=== PATIENT | female | born 1995 | race Caucasian/White ===

== ENCOUNTER 2020-05-20 18:28 | Emergency (ER) | payer OTHER, SELFPAY ==
[2020-05-20] VITALS (17 sets, daily range): BP systolic 118–238; BP diastolic 58–191; PULSE 137–199; RESP 24–43; TEMP 38.4–39.6; O2SAT 96–100; BMI 40.2
--- NOTE | 2020-05-20 18:40 | ED_ITS ---
HPI - General Adult General Chief complaint: Fever Stated complaint: shaking uncontrolably Time Seen by Provider: 05/20/20 18:39 History of Present Illness HPI narrative: 24-year-old 4 days vaginal delivery at the [facility] (transfer to [facility] with concerns of ventriculomegaly in the fetus) presents with 45 minutes of acute onset rigors, tachycardia, global weakness mild diaphoresis. She is on her way home from the [facility] after being discharged this afternoon. She reports a second-degree laceration. She has had some moderate difficulty with urination and had a catheter replaced once for acute urinary retention. Had been voiding prior to discharge. She states that she has been doing well up until 45 minutes ago. She does believe she has a urinary tract infection and has noticed more dysuria and frequency recently she is trying to breastfeed but today noticed that she had little milk. She has done no breast-feeding or pumping all day today (currently 7:00 p.m.) and breasts are still quite soft. She complains no chest pain, dyspnea, fevers,, abdominal pain. She does note that with her vaginal delivery she had a pudendal nerve issue and some weakness in her left leg that seems to be improving. She complains of a mild frontal headache no neck pain, back pain. She did have an epidural with her recent vaginal delivery. Related Data Allergies Allergy/AdvReac Type Severity Reaction Status Date / Time nuts AdvReac Uncoded 05/20/20 19:22 Review of Systems Review of Systems Narrative: Pertinent positive and negative findings as per HPI Remainder of review of systems is otherwise unremarkable for ENT: No sore throat, neck pain, ear pain CV: Chest pain, palpitations, dyspnea on exertion Respiratory: Cough, wheeze, dyspnea GI: Nausea, vomiting, diarrhea, change in bowel habits, black or bloody stools MS: Muscle weakness, numbness, joint swelling or warmth Skin: Rashes, nonhealing lesions Neuro: Syncope, dizziness, tingling Patient History Medical History (Updated 05/20/20 @ 21:51 by Staci Neal MD) Vaginal delivery (Acute) Exam Narrative Exam Narrative: General: Febrile, rigors, mild diaphoresis, tachypnea without reported dyspnea, able to speak in full sentences HEENT: Moist mucous membranes, normal sclera with reactive pupils, Neck: No JVD, supple Respiratory: Lungs are clear to auscultation, no wheezing no rales no rhonchi. Full and symmetrical air movement Breasts: Minimal fullness and minimal milk production, no erythema, no tenderness Cardiac: Extremely tachycardic but Regular rate and rhythm no murmurs no bruits Abdomen: with umbilicus at fundus. Soft nontender good bowel tones, no flank pain Skin: Flushed, no rashes. Small bruising midline over the lumbar spine from epidural placement Neurologic: Grossly neurologically intact with no obvious asymmetries or abnormalities Extremities: No trauma, well perfused, no calf tenderness and no significant lower extremity edema Perineal exam: Healing second-degree repair with no obvious abscess, induration or infection. Psych: Cooperative, appropriate insight and affect Bedside ultrasound shows significantly distended bladder and minimal endometrial debris Initial Vital Signs Initial Vital Signs: Vital Signs Temperature 103.3 F H 05/20/20 18:39 Pulse Rate 175 H 05/20/20 18:39 Respiratory Rate 24 05/20/20 18:39 Blood Pressure 154/106 H 05/20/20 18:39 Pulse Oximetry 97 05/20/20 18:39 Course Orders Ordered: ED Orders 05/20/20 18:43 XR chest 1V Stat EKG-12 Lead Stat RT Consult Eval and Treat Now 05/20/20 18:44 Complete Blood Count AUTO DIFF Stat Comprehensive Metabolic Panel Stat D Dimer Stat Lactate (Lactic Acid) Stat Lipase Stat Partial Thromboplastin Time Stat Procalcitonin Stat Prothrombin Time INR Stat 05/20/20 18:55 Blood Culture Stat 05/20/20 19:15 Urinalysis and Microscopic Stat Urine Culture Stat 05/20/20 19:16 CT angio chest PE protocol Stat Discontinued Medications Acetaminophen (Tylenol) 975 mg PO NOW ONE Stop: 05/20/20 19:14 Last Admin: 05/20/20 19:31 Dose: 975 mg Documented by: JANNY Gentamicin Sulfate (Garamycin Per Pharmacy) [facility] Stop: 05/20/20 18:41 Last Admin: 05/20/20 20:07 Dose: Not Given Documented by: JANNY Hydromorphone HCl (Dilaudid) 1 mg IV NOW ONE Stop: 05/20/20 20:26 Last Admin: 05/20/20 20:30 Dose: 1 mg Documented by: JANNY Sodium Chloride (Normal Saline 0.9%) 1,000 mls @ 1,000 mls/hr IV BOLUS ONE Stop: 05/20/20 19:42 Last Infusion: 05/20/20 21:32 Dose: 0 mls/hr Documented by: Admin: 05/20/20 19:23 Dose: 1,000 mls/hr Documented by: JANNY Cefepime HCl 2 gm/ Sodium (Chloride) 100 mls @ 200 mls/hr IV NOW ONE Stop: 05/20/20 18:41 Last Infusion: 05/20/20 20:43 Dose: 0 mls/hr Documented by: Admin: 05/20/20 19:52 Dose: 200 mls/hr Documented by: JANNY Gentamicin Sulfate 1,500 mg/ (Sodium Chloride) 137.5 mls @ 137.5 mls/hr IV NOW ONE Stop: 05/20/20 18:45 Last Admin: 05/20/20 19:17 Dose: Not Given Documented by: JANNY Sodium Chloride (Normal Saline 0.9%) 1,000 mls @ 2,000 mls/hr IV BOLUS ONE Stop: 05/20/20 19:20 Last Infusion: 05/20/20 20:44 Dose: 0 mls/hr Documented by: Admin: 05/20/20 19:24 Dose: 2,000 mls/hr Documented by: JANNY Cefepime HCl 2 gm/ Sodium (Chloride) 100 mls @ 200 mls/hr IV NOW ONE Stop: 05/20/20 19:12 Last Admin: 05/20/20 19:18 Dose: Not Given Documented by: JANNY Gentamicin Sulfate 500 mg/ (Sodium Chloride) 112.5 mls @ 137.5 mls/hr IV NOW ONE Stop: 05/20/20 19:33 Last Admin: 05/20/20 20:30 Dose: 137.5 mls/hr Documented by: JANNY Sodium Chloride (Normal Saline 0.9%) 1,000 mls @ 1,000 mls/hr IV BOLUS ONE Stop: 05/20/20 20:35 Last Infusion: 05/20/20 20:44 Dose: 0 mls/hr Documented by: Admin: 05/20/20 19:38 Dose: 1,000 mls/hr Documented by: JANNY Ibuprofen (Advil) 600 mg PO NOW ONE Stop: 05/20/20 21:49 Lidocaine HCl (Urojet) 5 ml TOP NOW ONE Stop: 05/20/20 20:36 Last Admin: 05/20/20 20:38 Dose: 5 ml Documented by: MINA Vital Signs Vital signs: Vital Signs - 8 hr 05/20/20 18:39 05/20/20 19:07 05/20/20 19:30 Temperature 103.3 F H Pulse Rate 175 H 153 H 141 H Respiratory Rate 24 29 H 26 H Blood Pressure 154/106 H Pulse Oximetry 97 99 05/20/20 19:31 05/20/20 19:33 05/20/20 20:00 Temperature 103.1 F H Pulse Rate 151 H 162 H Respiratory Rate 41 H 37 H Blood Pressure 135/63 Pulse Oximetry 98 99 05/20/20 20:09 05/20/20 20:15 05/20/20 20:23 Temperature 101.2 F H Pulse Rate 143 H 137 H 181 H Respiratory Rate 28 H 28 H 43 H Blood Pressure 125/58 L 137/71 146/78 H Pulse Oximetry 98 99 98 05/20/20 20:30 05/20/20 20:31 05/20/20 20:43 Temperature 101.3 F H Pulse Rate 199 H 194 H Respiratory Rate 43 H 39 H Blood Pressure 238/191 H Pulse Oximetry 100 100 05/20/20 20:54 05/20/20 21:00 05/20/20 21:30 Temperature Pulse Rate 152 H 150 H 153 H Respiratory Rate 29 H 27 H 26 H Blood Pressure 118/85 Pulse Oximetry 96 99 05/20/20 21:49 Temperature 102.5 F H Pulse Rate Respiratory Rate Blood Pressure Pulse Oximetry Medical Decision Making Medical Records Medical records reviewed: Yes I reviewed the patient's medical records. Lab Data Lab results reviewed: Yes I reviewed the patient's lab results. Result diagrams: 05/20/20 18:44 05/20/20 18:44 Labs: Lab Results 05/20/20 05/20/20 05/20/20 Range/Units 18:44 18:44 18:44 WBC 7.9 (4.5-11.0) X10^3/uL RBC 3.64 L (4.0-5.2) X10^6/uL Hgb 10.8 L (12.0-16.0) g/dL Hct 32.1 L (36-46) % MCV 88.2 (80-100) fL MCH 29.7 (26-34) PG MCHC 33.7 (30-36) % RDW 15.4 H (11.6-14.8) % Plt Count 205 (150-400) X10^3/uL Neut % (Auto) 86.4 H (50-75) % Lymph % (Auto) 10.8 L (25-40) % [place] % (Auto) 1.5 L (3-14) % Eos % (Auto) 1.0 L (2-4) % Baso % (Auto) 0.3 (0-2) % Neut # (Auto) 6800 (0812-2178) /uL Lymph # (Auto) 900 L (2536-1175) /uL [place] # (Auto) 100 (0-900) /uL Eos # (Auto) 100 (0-450) /uL Baso # (Auto) 0 (0-100) /uL PT 12.3 (10.1-12.7) SECONDS INR 1.1 (0.9-1.3) APTT 31 (26.4-36.2) SECONDS D-Dimer 1578 H (<230) ng/mL Sodium (137-145) mmol/L Potassium (3.4-5.1) mmol/L Chloride (98-107) mmol/L Carbon Dioxide (22-32) mmol/L BUN (7-17) mg/dL Creatinine (0.52-1.04) mg/dL Estimated GFR (>60) mL/min BUN/Creatinine Ratio (6-22) Glucose (70-100) mg/dL Lactate (0.7-2.1) mmol/L Calcium (8.4-10.2) mg/dL Total Bilirubin (0.2-1.3) mg/dL AST (14-36) IU/L ALT (<35) IU/L Alkaline Phosphatase (38-126) U/L Total Protein (6.3-8.2) g/dL Albumin (3.5-5.0) g/dL Globulin (1.7-4.1) g/dL Albumin/Globulin Ratio (1.0-2.8) Lipase (23-300) U/L Procalcitonin 1.36 H (<0.5) ng/mL Urine Color Urine Appearance Urine pH (4.5-8.0) Ur Specific [place] (1.000-1.035) Urine Protein (Negative) Urine Glucose (UA) (Negative) g/dL Urine Ketones (NEGATIVE) Urine Occult Blood (Negative) Urine Nitrate (Negative) Urine Bilirubin (NEGATIVE) Urine Urobilinogen (0.2) E.U./dL Ur Leukocyte Esterase (NEGATIVE) Urine RBC (0-5/HPF) Urine WBC (0-5/HPF) Urine Bacteria (None) Ur Culture Indicated? 05/20/20 05/20/20 05/20/20 Range/Units 18:44 18:44 18:44 WBC (4.5-11.0) X10^3/uL RBC (4.0-5.2) X10^6/uL Hgb (12.0-16.0) g/dL Hct (36-46) % MCV (80-100) fL MCH (26-34) PG MCHC (30-36) % RDW (11.6-14.8) % Plt Count (150-400) X10^3/uL Neut % (Auto) (50-75) % Lymph % (Auto) (25-40) % [place] % (Auto) (3-14) % Eos % (Auto) (2-4) % Baso % (Auto) (0-2) % Neut # (Auto) (0877-6849) /uL Lymph # (Auto) (0682-4226) /uL [place] # (Auto) (0-900) /uL Eos # (Auto) (0-450) /uL Baso # (Auto) (0-100) /uL PT (10.1-12.7) SECONDS INR (0.9-1.3) APTT (26.4-36.2) SECONDS D-Dimer Cancelled (<230) ng/mL Sodium 136 L (137-145) mmol/L Potassium 4.6 (3.4-5.1) mmol/L Chloride 103 (98-107) mmol/L Carbon Dioxide 23 (22-32) mmol/L BUN 8 (7-17) mg/dL Creatinine 0.86 (0.52-1.04) mg/dL Estimated GFR > 60.0 (>60) mL/min BUN/Creatinine Ratio 9.3 (6-22) Glucose 81 (70-100) mg/dL Lactate 3.3 H (0.7-2.1) mmol/L Calcium 8.5 (8.4-10.2) mg/dL Total Bilirubin 0.3 (0.2-1.3) mg/dL AST 59 H (14-36) IU/L ALT 54 H (<35) IU/L Alkaline Phosphatase 145 H (38-126) U/L Total Protein 7.1 (6.3-8.2) g/dL Albumin 3.7 (3.5-5.0) g/dL Globulin 3.4 (1.7-4.1) g/dL Albumin/Globulin Ratio 1.1 (1.0-2.8) Lipase 37 (23-300) U/L Procalcitonin (<0.5) ng/mL Urine Color Urine Appearance Urine pH (4.5-8.0) Ur Specific [place] (1.000-1.035) Urine Protein (Negative) Urine Glucose (UA) (Negative) g/dL Urine Ketones (NEGATIVE) Urine Occult Blood (Negative) Urine Nitrate (Negative) Urine Bilirubin (NEGATIVE) Urine Urobilinogen (0.2) E.U./dL Ur Leukocyte Esterase (NEGATIVE) Urine RBC (0-5/HPF) Urine WBC (0-5/HPF) Urine Bacteria (None) Ur Culture Indicated? 05/20/20 05/20/20 Range/Units 19:15 21:05 WBC (4.5-11.0) X10^3/uL RBC (4.0-5.2) X10^6/uL Hgb (12.0-16.0) g/dL Hct (36-46) % MCV (80-100) fL MCH (26-34) PG MCHC (30-36) % RDW (11.6-14.8) % Plt Count (150-400) X10^3/uL Neut % (Auto) (50-75) % Lymph % (Auto) (25-40) % [place] % (Auto) (3-14) % Eos % (Auto) (2-4) % Baso % (Auto) (0-2) % Neut # (Auto) (1815-5199) /uL Lymph # (Auto) (3721-2597) /uL [place] # (Auto) (0-900) /uL Eos # (Auto) (0-450) /uL Baso # (Auto) (0-100) /uL PT (10.1-12.7) SECONDS INR (0.9-1.3) APTT (26.4-36.2) SECONDS D-Dimer (<230) ng/mL Sodium (137-145) mmol/L Potassium (3.4-5.1) mmol/L Chloride (98-107) mmol/L Carbon Dioxide (22-32) mmol/L BUN (7-17) mg/dL Creatinine (0.52-1.04) mg/dL Estimated GFR (>60) mL/min BUN/Creatinine Ratio (6-22) Glucose (70-100) mg/dL Lactate 1.5 (0.7-2.1) mmol/L Calcium (8.4-10.2) mg/dL Total Bilirubin (0.2-1.3) mg/dL AST (14-36) IU/L ALT (<35) IU/L Alkaline Phosphatase (38-126) U/L Total Protein (6.3-8.2) g/dL Albumin (3.5-5.0) g/dL Globulin (1.7-4.1) g/dL Albumin/Globulin Ratio (1.0-2.8) Lipase (23-300) U/L Procalcitonin (<0.5) ng/mL Urine Color Yellow Urine Appearance Cloudy Urine pH 6.5 (4.5-8.0) Ur Specific [place] 1.010 (1.000-1.035) Urine Protein 2+ H (Negative) Urine Glucose (UA) Negative (Negative) g/dL Urine Ketones Negative (NEGATIVE) Urine Occult Blood 3+ H (Negative) Urine Nitrate Negative (Negative) Urine Bilirubin Negative (NEGATIVE) Urine Urobilinogen 0.2 (0.2) E.U./dL Ur Leukocyte Esterase 2+ H (NEGATIVE) Urine RBC 5-10/hpf H (0-5/HPF) Urine WBC >100/hpf H (0-5/HPF) Urine Bacteria Few (2-10) H (None) Ur Culture Indicated? Specimen cultured Imaging Data CT scan - chest: Radiologist's Impression: IMPRESSION: 1. No central pulmonary embolism. Distal branches are suboptimally opacified for evaluation. 2. Lungs are clear. Dictated by: Analy Genao M.D. on 05/20/2020 at 19:58 ECG Data Attestation: I personally reviewed and interpreted this ECG as follows: Interpretation: Sinus tachycardia at 174 Nonspecific T-wave changes MDM Narrative Medical decision making narrative: 24-year-old 4 days presents with acute onset fevers, chills, rigors with significant tachycardia. Initial presumption is a and a myoma tried thus with sepsis developing fluids and broad-spectrum antibiotics including cefepime and gentamicin are initiated. Concern for pulmonary embolism and D-dimer is ordered. No evidence of stroke, complications of her recent spinal epidural infusion or acute coronary syndrome at this time. Source of infection not suspected to be pulmonary. Initial blood pressure was quite elevated however that was with rigors noted next blood pressure was significantly hypotensive and most recent blood pressure has her moderately normotensive at 137/62. Her heart rate has come down to 140 range with 2 L of fluid. No evidence of pulmonary embolism 8:41pm rigors or returning. Blood pressure remains stable however lower extremities are beginning to look slightly mottled. Significantly distended bladder on ultrasound with endometrial lining of the uterus less than a cm in thickness without concerns for significantly retained products. As she was discharged just this afternoon from the [facility] will contact them to discuss admission for presumed sepsis urinary source. No pulmonary embolism, no retained products of conception, no perineal infection or necrotizing fasciitis, no pneumonia, no mastitis. Urine significantly cloudy. Remains tachycardic with rigors temperatures again increasing. She is not hypotensive. Blood pressure is not significant enough that I am concerned for preeclampsia and lab work does not suggest HELLP syndrome. Lactic acid was elevated at 3.3, white count is normal, significantly elevated procalcitonin and mild transaminase and alkaline phosphatase increase. She is finishing her 3rd L of fluid, has received 2 g of cefepime and is beginning 150 mg of gentamicin currently. [place] catheter has been placed with 1600cc 8:[address] Cowart, CLINICAL TRIALS MANAGER accepting. Ground transport to [address] [place] [address] Still febrile and tachy when transport arrives. 600mg IBU and change to LR for transport Urinary tract infection, sepsis, urinary retention, Critical Care Time Critical Care Time Critical Care Time: Yes Total Critical Care Time: 34 Attestation: Critical care time is separate from other billable procedures. This critical care time includes consultation with family and other consulting doctors, review of records, and interpretation of data from labs, EKGs and imaging as well as managements of acute circulatory collapse, sepsis and tachycardia. Discharge Plan Departure Patient Disposition: [facility] Clinical Impression: Acute urinary retention Sepsis Qualifiers: Sepsis type: sepsis due to unspecified organism Sepsis acute organ dysfunction status: without acute organ dysfunction Qualified Code(s): A41.9 - Sepsis, unspecified organism UTI (urinary tract infection) Qualifiers: Urinary tract infection type: acute cystitis Hematuria presence: without hematuria Qualified Code(s): N30.00 - Acute cystitis without hematuria
--- NOTE | 2020-05-20 18:43 | DI.RAD.S_ITS ---
PROCEDURE: XR CHEST 1V INDICATIONS: suspected sepsis TECHNIQUE: One view of the chest was acquired. COMPARISON: None. FINDINGS: Surgical changes and devices: None. Lungs and pleura: Lungs are clear. No pleural effusions or pneumothorax. Mediastinum: Mediastinal contours appear normal. Heart size is normal. Bones and chest wall: No suspicious bony lesions. Overlying soft tissues appear unremarkable. IMPRESSION: No acute pulmonary process. Dictated by: Analy Genao M.D. on 05/20/2020 at 19:13 Approved by: Analy Genao M.D. on 05/20/2020 at 19:14
[2020-05-20 18:54] LABS: Add Manual Diff / Slide Review NO; Basophils Absolute Auto 0 /uL (0-100); Basophils Percent Auto 0.3 % (0-2); Eosinophils Absolute Auto 100 /uL (0-450); Hematocrit 32.1 % (36-46); Hemoglobin 10.8 g/dL (12.0-16.0); Lymphocytes Absolute Auto 900 /uL (1100-4500); Lymphocytes Percent Auto 10.8 % (25-40); Mean Corpuscular HGB Conc 33.7 % (30-36); Mean Corpuscular Hemoglobin 29.7 PG (26-34); Mean Corpuscular Volume 88.2 fL (80-100); Monocytes Absolute Auto 100 /uL (0-900); Monocytes Percent Auto 1.5 % (3-14); Neutrophils Absolute Auto 6800 /uL (1500-7000); Neutrophils Percent Auto 86.4 % (50-75); Platelet Count 205 X10^3/uL (150-400); Red Blood Cell Count 3.64 X10^6/uL (4.0-5.2); Red Cell Distribution Width 15.4 % (11.6-14.8); White Blood Cell Count 7.9 X10^3/uL (4.5-11.0)
[2020-05-20 19:01] LABS: INR 1.1 (0.9-1.3); Prothrombin Time 12.3 SECONDS (10.1-12.7)
[2020-05-20 19:04] LABS: Lactate (Lactic Acid) 3.3 mmol/L (0.7-2.1); PTT Partial Thromboplastin Tim 31 SECONDS (26.4-36.2)
[2020-05-20 19:05] LABS: Alanine Aminotransferase 54 IU/L (<35); Albumin 3.7 g/dL (3.5-5.0); Albumin Globulin Ratio 1.1 (1.0-2.8); Alkaline Phosphatase 145 U/L (38-126); Aspartate Aminotransferase 59 IU/L (14-36); BUN Creatinine Ratio 9.3 (6-22); Bilirubin Total 0.3 mg/dL (0.2-1.3); Blood Urea Nitrogen 8 mg/dL (7-17); Calcium 8.5 mg/dL (8.4-10.2); Carbon Dioxide 23 mmol/L (22-32); Chloride 103 mmol/L (98-107); Estimated Glomerular Filt Rate > 60.0 mL/min (>60); Globulin 3.4 g/dL (1.7-4.1); Glucose 81 mg/dL (70-100); HEMOLYSIS < 15 (0-50); Lipase 37 U/L (23-300); Potassium 4.6 mmol/L (3.4-5.1); Sodium 136 mmol/L (137-145); Total Protein 7.1 g/dL (6.3-8.2)
[2020-05-20 19:11] LABS: D Dimer 1578 ng/mL (<230)
--- NOTE | 2020-05-20 19:16 | DI.CT.S_ITS ---
PROCEDURE: CT ANGIO CHEST PE PROTOCOL INDICATIONS: HR 177, elevated DDimer TECHNIQUE: After the administration of intravenous contrast, 2 mm thick sections acquired from the pulmonary apices to the posterior costophrenic angles. 3-dimensional maximum intensity projection (MIP) coronal and sagittal reformats were then acquired through the thorax. For radiation dose reduction, the following was used: automated exposure control, adjustment of mA and/or kV according to patient size. COMPARISON: [facility], CR, XR CHEST 1V, 05/20/2020, 18:56. FINDINGS: Image quality: Distal branches are suboptimally evaluated. Pulmonary arteries: Pulmonary arteries are normal in size, and demonstrate no intraluminal filling defects to suggest central pulmonary embolism. Lungs and pleura: Lungs are clear. No pleural effusions or pneumothorax. Central and peripheral airways are patent. Mediastinum: Heart size is enlarged, without pericardial effusion. No mediastinal or hilar adenopathy. Thoracic aorta is normal in caliber and enhancement. Esophagus is normal in caliber, with mild hiatal hernia. Bones and chest wall: No suspicious bony lesions. Ribs and thoracic spine appear intact throughout. Thyroid gland is unremarkable . No axillary or supraclavicular adenopathy. Abdomen: Visualized upper abdominal solid organs appear normal in the early arterial phase of enhancement. IMPRESSION: 1. No central pulmonary embolism. Distal branches are suboptimally opacified for evaluation. 2. Lungs are clear. Dictated by: Analy Genao M.D. on 05/20/2020 at 19:58 Approved by: Analy Genao M.D. on 05/20/2020 at 19:59
[2020-05-20 19:21] LABS: Procalcitonin 1.36 ng/mL (<0.5)
[2020-05-20] MEDS: SODIUM CHLORIDE 0.9% 1,000 ML 1000 ML IV ×2 (19:23→19:38)
[2020-05-20] MEDS: SODIUM CHLORIDE 0.9% 1,000 ML 2000 ML IV (19:24)
[2020-05-20] MEDS: ACETAMINOPHEN 325 MG TABLET 975 MG PO (19:31)
[2020-05-20] MEDS: CEFEPIME 2 GM in SODIUM CHLORIDE 0.9% 100 ML 200 ML IV (19:52)
[2020-05-20 20:13] LABS: Bilirubin Urine UA NEGATIVE (NEGATIVE); Color Urine UA YELLOW; Glucose Urine UA NEGATIVE (Negative); Ketones Urine UA NEGATIVE (NEGATIVE); Leukocyte Esterase Urine UA 2+ (NEGATIVE); Nitrite Urine UA NEGATIVE (Negative); Occult Blood Urine UA 3+ (Negative); Protein Urine UA 2+ (Negative); Urobilinogen Urine UA 0.2 E.U./dL (0.2)
[2020-05-20 20:20] LABS: Appearance Urine UA CLOUDY; pH Urine UA 6.5 (4.5-8.0)
[2020-05-20 20:21] LABS: RBC Urine 5-10/HPF (0-5/HPF); WBC Urine >100/HPF (0-5/HPF)
[2020-05-20 20:22] LABS: Bacteria Urine Few (2-10); Culture Indicated Urine Specimen Cultured
[2020-05-20] MEDS: HYDROMORPHONE 1 MG INJ IV (20:30)
[2020-05-20] MEDS: GENTAMICIN 500 MG in SODIUM CHLORIDE 0.9% 100 ML 137.5 ML IV (20:30)
[2020-05-20] MEDS: LIDOCAINE 2% (UROJET) 5 ML GEL TOP (20:38)
[2020-05-20 20:51] LABS: Reflexed Lactate in 2 Hours Y
[2020-05-20 21:26] LABS: Lactate 2HR (Lactic Acid Rflx) 1.5 mmol/L (0.7-2.1)
[2020-05-20] MEDS: IBUPROFEN 400 MG TABLET 600 MG PO (21:52)
[2020-05-21 10:48] LABS: Acinetobacter baumannii Not Detected (Not Detect); Enterococcus species Not Detected (Not Detect); Listeria monocytogenes Not Detected (Not Detect); Staphylococcus species Not Detected (Not Detect); Streptococcus agalactiae (Gr B Not Detected (Not Detect); Streptococcus pneumonia Not Detected (Not Detect); Streptococcus pyogenes (Gr A) Not Detected (Not Detect); Streptococcus species Not Detected (Not Detect)
[2020-05-21 10:50] LABS: Candida albicans Not Detected (Not Detect); Candida glabrata Not Detected (Not Detect); Candida krusei Not Detected (Not Detect); Candida parapsilosis Not Detected (Not Detect); Candida tropicalis Not Detected (Not Detect); E. coli Detected (Not Detect); Enterobacter cloacae complex Not Detected (Not Detect); Enterobacteriaceae species Detected (Not Detect); Haemophilus influenzae Not Detected (Not Detect); KPC (carbapenem-resist gene) Not Detected (Not Detect); Neisseria meningitidis Not Detected (Not Detect); Proteus species Not Detected (Not Detect); Pseudomonas aeruginosa Not Detected (Not Detect); Serratia marcescens Not Detected (Not Detect)
== END 2020-05-20 22:12 | disposition short-term general hospital (02) ==
PROVIDERS: Emergency Provider Emergency Medicine
DX: A41.9 Sepsis, unspecified organism (principal); R06.82 Tachypnea, not elsewhere classified; N30.00 Acute cystitis without hematuria; R33.8 Other retention of urine; R00.0 Tachycardia, unspecified; R79.89 Other specified abnormal findings of blood chemistry; O90.89 Other complications of the puerperium, not elsewhere classified
CPT/HCPCS: 36415; 71045; 71275; 80053; 81001; 83605; 83690; 84145; 85025; 85379; 85610; 85730; 87040; 87077; 87086; 87150; 87186; 87205; 93005; 96365; 96367; 99284; 99291; J0692; J1170; Q9967